=== PATIENT | female | born 1995 | race African-American/Black ===

== ENCOUNTER 2021-04-04 13:38 | Inpatient (IN) | payer OTHER ==
[2021-04-04] MEDS ORDERED: NalbUPHINE 10 MG/1 ML INJ IV PRN (14:15)
[2021-04-04] MEDS ORDERED: MINERAL OIL 30 ML ORAL LIQD PO PRN (14:15)
[2021-04-04] MEDS ORDERED: LOPERAMIDE 2 MG CAP PO PRN (14:15)
[2021-04-04] MEDS ORDERED: ONDANSETRON 4 MG/2 ML INJ IV PRN (14:15)
[2021-04-04] MEDS ORDERED: BUTORPHANOL 2 MG/1 ML INJ IV PRN (14:15)
[2021-04-04] MEDS ORDERED: miSOPROStol 200 MCG TAB PR PRN (14:15)
[2021-04-04] MEDS ORDERED: ePHEDrine SULFATE 50 MG/1 ML INJ IV PRN (14:15)
[2021-04-04] MEDS ORDERED: fentaNYL 100 MCG/2 ML INJ IV PRN (14:15)
[2021-04-04] MEDS ORDERED: LACTATED RINGERS 1,000 ML IV SCH (14:15)
[2021-04-04] MEDS ORDERED: METHYLERGONOVINE MALEATE 0.2 MG/ML VIAL IM PRN (14:15)
[2021-04-04] MEDS ORDERED: TERBUTALINE 1 MG/1 ML INJ SUB-Q PRN (14:15)
[2021-04-04] MEDS ORDERED: ACETAMINOPHEN 325 MG TAB PO PRN (14:15)
[2021-04-04] MEDS ORDERED: CARBOPROST TROMETHAMINE 250 MCG/1 ML INJ IM PRN (14:15)
[2021-04-04] MEDS ORDERED: OXYTOCIN 10 UNIT/1 ML INJ IM PRN (14:15)
--- NOTE | 2021-04-04 14:34 | History and Physical Report ---
History of Present Illness Date of examination: 04/04/21 Date of admission: 04/04/21 Chief complaint: pre-eclampsia at 35 week History of present illness: Patient course 2 para 0-1-0-1 history of section previously he desires and varicella nonimmune 1 hour GTT was abnormal 3-hour GTT was normal 24-hour urine protein is 473 mg he had approximately 10 visits during this . Blood type is A+ antibody screen negative hematocrit 40.7% rubella was immune Pap smear normal VDRL nonreactive urine culture positive hepatitis B was given hemoglobin hepatitis B was negative HIV was negative platelets were 276,000 vitamin D was 22.8 MSAFP was negative. Hematocrit was 36.2% VDRL was nonreactive 02/11/2021 group B strep not available HIV test was negative. The patient is admitted for 24-hour urine possibilities for induction of labor. All her lab values shows. Past History Past Surgical History: section Social history: denies: - Obstetrical History Expected Date of Delivery: 05/06/21 Actual Gestation: 35 Week(s) 3 Day(s) : 2 Para: 1 Hx # Term Pregnancies: 0 Number of Pregnancies: 1 Spontaneous Abortions: 0 Induced : 0 Number of Living Children: 1 Medications and Allergies Allergies Allergy/AdvReac Type Severity Reaction Status Date / Time No Known Allergies Allergy Unverified 04/04/21 14:03 Active Meds: Active Medications Acetaminophen (Acetaminophen 325 Mg Tab) 650 mg PO Q4H PRN PRN Reason: Pain, Mild (1-3) Butorphanol Tartrate (Butorphanol 2 Mg/1 Ml Inj) 1 mg IV Q2H PRN PRN Reason: Pain, Moderate(4-6) LABOR PAIN Carboprost Tromethamine (Carboprost Tromethamine 250 Mcg/1 Ml Inj) 250 mcg IM ONCE PRN PRN Reason: Uterine Bleeding Ephedrine Sulfate (Ephedrine Sulfate 50 Mg/1 Ml Inj) 10 mg IV Q2M PRN PRN Reason: Hypotension Fentanyl (Fentanyl 100 Mcg/2 Ml Inj) 100 mcg IV Q2H PRN PRN Reason: Pain,Severe (7-10) LABOR PAIN Lactated Ringer's (Lactated Ringers) 1,000 mls @ 125 mls/hr IV DIRECT ASHLEY Labetalol HCl (Labetalol 100 Mg Tab) 100 mg PO BID ASHLEY Lidocaine (Lidocaine (2%) 20 Mg/1 Ml Vial 20 Ml Mdv) 20 ml INFILTRATI ONCE ONE Stop: 04/04/21 14:16 Loperamide HCl (Loperamide 2 Mg Cap) 2 mg PO ONCE PRN PRN Reason: give with Hemabate Methylergonovine Maleate (Methylergonovine Maleate 0.2 Mg/Ml Vial) 0.2 mg IM ONCE PRN PRN Reason: Uterine Bleeding Mineral Oil (Mineral Oil 30 Ml Oral Liqd) 30 ml PO QHS PRN PRN Reason: Constipation Misoprostol (Misoprostol 200 Mcg Tab) 800 mcg [place] ONCE PRN PRN Reason: Uterine Bleeding Nalbuphine HCl (Nalbuphine 10 Mg/1 Ml Inj) 10 mg IV Q2H PRN PRN Reason: Pain, Moderate (4-6) Ondansetron HCl (Ondansetron 4 Mg/2 Ml Inj) 4 mg IV Q8H PRN PRN Reason: Nausea And Vomiting Oxytocin (Oxytocin 10 Unit/1 Ml Inj) 10 unit IM ONCE PRN PRN Reason: Uterine Bleeding Terbutaline Sulfate (Terbutaline 1 Mg/1 Ml Inj) 0.25 mg SUB-Q ONCE PRN PRN Reason: Hyperstimulation/Hypertonicity Review of Systems All systems: negative - Vital Signs Vital signs: Vital Signs Temp Pulse Resp BP Pulse Ox 98.4 F 102 H 16 137/92 97 04/04/21 14:21 04/04/21 14:21 04/04/21 14:21 04/04/21 14:21 04/04/21 14:21 Temp Pulse Resp BP Pulse Ox 98.4 F 106 H 16 137/92 98 04/04/21 14:21 04/04/21 14:26 04/04/21 14:21 04/04/21 14:04/04/21 14:26 - Physical Exam Breasts: Cardiovascular: Regular rate, Normal S1, Normal S2 Abdomen: Positive: normal appearance, soft, normal bowel sounds. Negative: distention, tenderness Vulva: both: normal Vagina: Positive: normal moisture. Negative: discharge Cervix: Negative: lesion, discharge Uterus: Positive: normal size, enlarged, normal contour Adnexa: both: normal Anus/Rectum: Positive: normal perianal skin, heme negative. Negative: rectal mass, hemorrhoids Extremities: Deep Tendon Reflex Grade: Normal +2 - Obstetrical FHR: auscultation normal, category 1 Uterine Contraction Monitor Mode: Palpation Cervical Dilatation: 1 Cervical Effacement Percentage: 50 station: -4 Uterine Contraction Pattern: Absent Results All other labs normal. Assessment and Plan 36 wks iup with pre-eclampsia.
[2021-04-04] MEDS ORDERED: LIDOCAINE (2%) 20 MG/1 ML VIAL 20 ML MDV INFILTRATI ONE (15:00)
[2021-04-04 15:17] LABS: Alanine Aminotransferase 19 units/L (7-56); Uric Acid 3.7 mg/dL (3.5-7.6)
[2021-04-04 15:25] LABS: Hemoglobin 12.3 gm/dl (10.1-14.3); Mean Corpuscular HGB Conc 35 % (30-34); Mean Corpuscular Volume 90 fl (79-97); Platelet Count 270 K/mm3 (140-440); Red Blood Count 3.88 M/mm3 (3.65-5.03)
--- NOTE | 2021-04-04 17:14 | Ultrasound Report ---
ULTRASOUND OBSTETRIC COMPLETE INDICATION / CLINICAL INFORMATION: labor. Clinical Gestational Age (GA) in weeks.days: 35.4 TECHNIQUE: Transabdominal. COMPARISON: None available. FINDINGS: NUMBER: Single PRESENTATION: cephalic PLACENTA: Fundal/left lateral and free of the os. MATERNAL ADNEXA: No significant abnormality. AMNIOTIC FLUID VOLUME: normal AMNIOTIC FLUID INDEX (LEOLA) in cm (if measured): 7.9 MEASUREMENTS: - Biparietal Diameter = 8.7 cm = 35.1 weeks.days - Head Circumference = 32 cm = 36.0 weeks.days - Abdominal Circumference = 31.3 cm = 35.2 weeks.days - Femur Length = 6.6 cm = 34.0 weeks.days - Estimated Weight (in grams, if calculated): 2559 - Heart Rate (beats per minute): 155 ADDITIONAL FINDINGS: None. PERCENTILE ESTIMATED WEIGHT (if calculated): 32 AVERAGE ULTRASOUND AGE (AUA) in weeks.days = 35.1 Detailed anatomic evaluation was not performed. IMPRESSION: 1. Single intrauterine with AUA of 35.1 weeks.days 2. No significant sonographic abnormality. Signer Name: Louis Tai MD Signed: 04/04/2021 5:09 PM Workstation Name: [id number]
[2021-04-04 17:56] LABS: Bilirubin,Urine NEG (Negative); Blood,Urine SM (Negative); Color,Urine Yellow (Yellow); Mucus,Urine 1+ /HPF; Urobilinogen,Urine < 2.0 mg/dL (<2.0)
--- NOTE | 2021-04-04 18:52 | Ultrasound Report ---
ULTRASOUND OBSTETRIC LIMITED ULTRASOUND BIOPHYSICAL PROFILE INDICATION / CLINICAL INFORMATION: ptl/ pih/. Clinical Gestational Age (GA): 35.4 weeks.days COMPARISON: None available. FINDINGS: BREATHING MOVEMENT = 2 GROSS BODY MOVEMENT = 2 TONE = 2 QUALITATIVE AMNIOTIC FLUID VOLUME = 2 TOTAL BIOPHYSICAL SCORE = 8/8 HEART RATE (beats per minute): 155 AMNIOTIC FLUID INDEX (cm) = 7.9 (normal = 7-24 cm) PRESENTATION: Cephalic. ADDITIONAL FINDINGS: None. IMPRESSION: 1. Biophysical Score = 8/8 Signer Name: Alex Vance MD Signed: 04/04/2021 6:48 PM Workstation Name: [id number]
[2021-04-05] MEDS ORDERED: OXYTOCIN DRIP 0 MILLIUNITS/0 ML BAG IV ONE (04:20)
--- NOTE | 2021-04-05 08:38 | Progress Note ---
Assessment and Plan 36 wks iup with pre-eclampsia.BP STABLE. AWAIT 24 HR URINE.BP STABLE. Subjective Date of service: 04/05/21 Principal diagnosis: 35 wks iup,PREVIOUS C/S, PRE-ECLAMPSIA Interval history: SEE H&P. Objective - Constitutional Vitals: Vital Signs - 12hr 04/04/21 04/04/21 04/04/21 20:35 20:40 20:45 Temperature Pulse Rate 104 H 110 H 97 H Respiratory Rate Blood Pressure 140/89 Blood Pressure [Left] O2 Sat by Pulse 97 99 98 Oximetry O2 Sat by Pulse Oximetry [ Bilateral Throughout] 04/04/21 04/04/21 04/04/21 20:50 20:55 21:00 Temperature Pulse Rate 96 H 100 H 95 H Respiratory Rate Blood Pressure Blood Pressure [Left] O2 Sat by Pulse 98 97 97 Oximetry O2 Sat by Pulse Oximetry [ Bilateral Throughout] 04/04/21 04/04/21 04/04/21 21:05 21:13 21:16 Temperature Pulse Rate 96 H 102 H Respiratory Rate Blood Pressure 139/88 Blood Pressure [Left] O2 Sat by Pulse 97 98 Oximetry O2 Sat by Pulse Oximetry [ Bilateral Throughout] 04/04/21 04/04/21 04/04/21 21:18 21:23 21:28 Temperature Pulse Rate 103 H 94 H 91 H Respiratory Rate Blood Pressure Blood Pressure [Left] O2 Sat by Pulse 98 97 98 Oximetry O2 Sat by Pulse Oximetry [ Bilateral Throughout] 04/04/21 04/04/21 04/04/21 21:33 21:38 21:43 Temperature Pulse Rate 95 H 95 H 91 H Respiratory Rate Blood Pressure Blood Pressure [Left] O2 Sat by Pulse 99 98 98 Oximetry O2 Sat by Pulse Oximetry [ Bilateral Throughout] 04/04/21 04/04/21 04/04/21 21:45 21:48 21:53 Temperature Pulse Rate 89 95 H 95 H Respiratory Rate Blood Pressure 132/90 Blood Pressure [Left] O2 Sat by Pulse 98 98 Oximetry O2 Sat by Pulse Oximetry [ Bilateral Throughout] 04/04/21 04/04/21 04/04/21 21:58 22:03 22:08 Temperature Pulse Rate 96 H 100 H 95 H Respiratory Rate Blood Pressure Blood Pressure [Left] O2 Sat by Pulse 98 98 98 Oximetry O2 Sat by Pulse Oximetry [ Bilateral Throughout] 04/04/21 04/04/21 04/04/21 22:13 22:15 22:18 Temperature Pulse Rate 97 H 90 91 H Respiratory Rate Blood Pressure 134/90 Blood Pressure [Left] O2 Sat by Pulse 98 97 Oximetry O2 Sat by Pulse Oximetry [ Bilateral Throughout] 04/04/21 04/04/21 04/04/21 22:29 22:34 22:39 Temperature Pulse Rate 103 H 99 H 96 H Respiratory Rate Blood Pressure Blood Pressure [Left] O2 Sat by Pulse 99 98 98 Oximetry O2 Sat by Pulse Oximetry [ Bilateral Throughout] 04/04/21 04/04/21 04/04/21 22:44 22:45 22:49 Temperature Pulse Rate 88 82 91 H Respiratory Rate Blood Pressure 134/85 Blood Pressure [Left] O2 Sat by Pulse 98 97 Oximetry O2 Sat by Pulse Oximetry [ Bilateral Throughout] 04/04/21 04/04/21 04/04/21 22:54 22:59 23:04 Temperature Pulse Rate 94 H 88 93 H Respiratory Rate Blood Pressure Blood Pressure [Left] O2 Sat by Pulse 97 97 97 Oximetry O2 Sat by Pulse Oximetry [ Bilateral Throughout] 04/04/21 04/04/21 04/04/21 23:09 23:14 23:15 Temperature Pulse Rate 88 87 85 Respiratory Rate Blood Pressure 147/82 Blood Pressure [Left] O2 Sat by Pulse 98 97 Oximetry O2 Sat by Pulse Oximetry [ Bilateral Throughout] 04/04/21 04/04/21 04/04/21 23:19 23:24 23:29 Temperature Pulse Rate 104 H 98 H 101 H Respiratory Rate Blood Pressure Blood Pressure [Left] O2 Sat by Pulse 97 97 97 Oximetry O2 Sat by Pulse Oximetry [ Bilateral Throughout] 04/04/21 04/04/21 04/04/21 23:34 23:39 23:44 Temperature Pulse Rate 95 H 97 H 94 H Respiratory Rate Blood Pressure Blood Pressure [Left] O2 Sat by Pulse 97 97 97 Oximetry O2 Sat by Pulse Oximetry [ Bilateral Throughout] 04/04/21 04/04/21 04/04/21 23:45 23:49 23:54 Temperature Pulse Rate 96 H 90 97 H Respiratory Rate Blood Pressure 128/69 Blood Pressure [Left] O2 Sat by Pulse 97 97 Oximetry O2 Sat by Pulse Oximetry [ Bilateral Throughout] 04/04/21 04/05/21 04/05/21 23:59 00:00 00:04 Temperature 98.9 F Pulse Rate 89 95 H Respiratory Rate Blood Pressure Blood Pressure [Left] O2 Sat by Pulse 97 97 Oximetry O2 Sat by Pulse Oximetry [ Bilateral Throughout] 04/05/21 04/05/21 04/05/21 00:09 00:14 00:15 Temperature Pulse Rate 99 H 94 H 98 H Respiratory Rate Blood Pressure 131/69 Blood Pressure [Left] O2 Sat by Pulse 96 97 Oximetry O2 Sat by Pulse Oximetry [ Bilateral Throughout] 04/05/21 04/05/21 04/05/21 00:19 00:24 00:35 Temperature Pulse Rate 96 H 101 H 107 H Respiratory Rate Blood Pressure Blood Pressure [Left] O2 Sat by Pulse 96 96 99 Oximetry O2 Sat by Pulse Oximetry [ Bilateral Throughout] 04/05/21 04/05/21 04/05/21 00:40 00:45 00:46 Temperature Pulse Rate 99 H 90 92 H Respiratory Rate Blood Pressure 143/85 Blood Pressure [Left] O2 Sat by Pulse 98 94 94 Oximetry O2 Sat by Pulse Oximetry [ Bilateral Throughout] 04/05/21 04/05/21 04/05/21 00:50 00:55 01:00 Temperature Pulse Rate 96 H 96 H 92 H Respiratory Rate Blood Pressure Blood Pressure [Left] O2 Sat by Pulse 97 96 97 Oximetry O2 Sat by Pulse Oximetry [ Bilateral Throughout] 04/05/21 04/05/21 04/05/21 01:05 01:10 01:15 Temperature Pulse Rate 99 H 99 H 101 H Respiratory Rate Blood Pressure 126/71 Blood Pressure [Left] O2 Sat by Pulse 97 97 97 Oximetry O2 Sat by Pulse Oximetry [ Bilateral Throughout] 04/05/21 04/05/21 04/05/21 01:20 01:25 01:30 Temperature Pulse Rate 102 H 95 H 98 H Respiratory Rate Blood Pressure Blood Pressure [Left] O2 Sat by Pulse 98 97 97 Oximetry O2 Sat by Pulse Oximetry [ Bilateral Throughout] 04/05/21 04/05/21 04/05/21 01:35 01:40 01:45 Temperature Pulse Rate 98 H 101 H 101 H Respiratory Rate Blood Pressure 128/70 Blood Pressure [Left] O2 Sat by Pulse 97 97 97 Oximetry O2 Sat by Pulse Oximetry [ Bilateral Throughout] 04/05/21 04/05/21 04/05/21 01:52 01:57 02:02 Temperature Pulse Rate 100 H 91 H 93 H Respiratory Rate Blood Pressure Blood Pressure [Left] O2 Sat by Pulse 100 97 97 Oximetry O2 Sat by Pulse Oximetry [ Bilateral Throughout] 04/05/21 04/05/21 04/05/21 02:07 02:12 02:15 Temperature Pulse Rate 93 H 103 H 90 Respiratory Rate Blood Pressure 130/71 Blood Pressure [Left] O2 Sat by Pulse 97 97 Oximetry O2 Sat by Pulse Oximetry [ Bilateral Throughout] 04/05/21 04/05/21 04/05/21 02:17 02:22 02:27 Temperature Pulse Rate 100 H 95 H 98 H Respiratory Rate Blood Pressure Blood Pressure [Left] O2 Sat by Pulse 96 97 96 Oximetry O2 Sat by Pulse Oximetry [ Bilateral Throughout] 04/05/21 04/05/21 04/05/21 02:32 02:37 02:42 Temperature Pulse Rate 89 91 H 92 H Respiratory Rate Blood Pressure Blood Pressure [Left] O2 Sat by Pulse 97 97 96 Oximetry O2 Sat by Pulse Oximetry [ Bilateral Throughout] 04/05/21 04/05/21 04/05/21 02:46 02:47 02:52 Temperature Pulse Rate 82 91 H 90 Respiratory Rate Blood Pressure 133/66 Blood Pressure [Left] O2 Sat by Pulse 93 97 96 Oximetry O2 Sat by Pulse Oximetry [ Bilateral Throughout] 04/05/21 04/05/21 04/05/21 02:57 03:02 03:07 Temperature Pulse Rate 89 90 89 Respiratory Rate Blood Pressure Blood Pressure [Left] O2 Sat by Pulse 96 96 96 Oximetry O2 Sat by Pulse Oximetry [ Bilateral Throughout] 04/05/21 04/05/21 04/05/21 03:12 03:15 03:17 Temperature Pulse Rate 91 H 96 H 86 Respiratory Rate Blood Pressure 121/75 Blood Pressure [Left] O2 Sat by Pulse 96 97 Oximetry O2 Sat by Pulse Oximetry [ Bilateral Throughout] 04/05/21 04/05/21 04/05/21 03:22 03:27 03:32 Temperature Pulse Rate 91 H 91 H 99 H Respiratory Rate Blood Pressure Blood Pressure [Left] O2 Sat by Pulse 96 97 96 Oximetry O2 Sat by Pulse Oximetry [ Bilateral Throughout] 04/05/21 04/05/21 04/05/21 03:37 03:42 03:45 Temperature Pulse Rate 95 H 98 H 95 H Respiratory Rate Blood Pressure 121/77 Blood Pressure [Left] O2 Sat by Pulse 98 96 Oximetry O2 Sat by Pulse Oximetry [ Bilateral Throughout] 04/05/21 04/05/21 04/05/21 03:52 03:57 04:02 Temperature Pulse Rate 99 H 91 H 90 Respiratory Rate Blood Pressure Blood Pressure [Left] O2 Sat by Pulse 99 98 98 Oximetry O2 Sat by Pulse Oximetry [ Bilateral Throughout] 04/05/21 04/05/21 04/05/21 04:07 04:12 04:15 Temperature Pulse Rate 97 H 96 H 88 Respiratory Rate Blood Pressure 124/70 Blood Pressure [Left] O2 Sat by Pulse 98 98 Oximetry O2 Sat by Pulse Oximetry [ Bilateral Throughout] 04/05/21 04/05/21 04/05/21 04:17 04:22 04:27 Temperature Pulse Rate 94 H 87 88 Respiratory Rate Blood Pressure Blood Pressure [Left] O2 Sat by Pulse 98 98 97 Oximetry O2 Sat by Pulse Oximetry [ Bilateral Throughout] 04/05/21 04/05/21 04/05/21 04:32 04:37 04:42 Temperature Pulse Rate 92 H 79 84 Respiratory Rate Blood Pressure Blood Pressure [Left] O2 Sat by Pulse 98 98 98 Oximetry O2 Sat by Pulse Oximetry [ Bilateral Throughout] 04/05/21 04/05/21 04/05/21 04:46 04:47 04:52 Temperature Pulse Rate 78 87 95 H Respiratory Rate Blood Pressure 130/74 Blood Pressure [Left] O2 Sat by Pulse 97 99 Oximetry O2 Sat by Pulse Oximetry [ Bilateral Throughout] 04/05/21 04/05/21 04/05/21 04:57 05:02 05:07 Temperature Pulse Rate 88 90 92 H Respiratory Rate Blood Pressure Blood Pressure [Left] O2 Sat by Pulse 99 98 95 Oximetry O2 Sat by Pulse Oximetry [ Bilateral Throughout] 04/05/21 04/05/21 04/05/21 05:12 05:15 05:17 Temperature Pulse Rate 89 83 91 H Respiratory Rate Blood Pressure 142/84 Blood Pressure [Left] O2 Sat by Pulse 96 98 Oximetry O2 Sat by Pulse Oximetry [ Bilateral Throughout] 04/05/21 04/05/21 04/05/21 05:22 05:35 05:40 Temperature Pulse Rate 105 H 89 Respiratory Rate Blood Pressure Blood Pressure [Left] O2 Sat by Pulse 98 96 98 Oximetry O2 Sat by Pulse Oximetry [ Bilateral Throughout] 04/05/21 04/05/21 04/05/21 05:45 05:50 05:55 Temperature 98.6 F Pulse Rate 99 H 97 H 103 H Respiratory Rate Blood Pressure 132/90 Blood Pressure [Left] O2 Sat by Pulse 97 97 97 Oximetry O2 Sat by Pulse Oximetry [ Bilateral Throughout] 04/05/21 04/05/21 04/05/21 06:00 06:05 06:10 Temperature Pulse Rate 102 H 97 H 105 H Respiratory Rate Blood Pressure Blood Pressure [Left] O2 Sat by Pulse 97 97 98 Oximetry O2 Sat by Pulse Oximetry [ Bilateral Throughout] 04/05/21 04/05/21 04/05/21 06:15 06:20 06:25 Temperature Pulse Rate 105 H 101 H 97 H Respiratory Rate Blood Pressure 126/72 Blood Pressure [Left] O2 Sat by Pulse 96 97 97 Oximetry O2 Sat by Pulse Oximetry [ Bilateral Throughout] 04/05/21 04/05/21 04/05/21 06:30 06:35 06:40 Temperature Pulse Rate 98 H 93 H 94 H Respiratory Rate Blood Pressure Blood Pressure [Left] O2 Sat by Pulse 97 97 97 Oximetry O2 Sat by Pulse Oximetry [ Bilateral Throughout] 04/05/21 04/05/21 04/05/21 06:45 06:50 06:55 Temperature Pulse Rate 93 H 94 H 97 H Respiratory Rate Blood Pressure 127/64 Blood Pressure [Left] O2 Sat by Pulse 97 97 96 Oximetry O2 Sat by Pulse Oximetry [ Bilateral Throughout] 04/05/21 04/05/21 04/05/21 07:00 07:02 07:03 Temperature 97.9 F Pulse Rate 99 H 106 H 99 H Respiratory 16 Rate Blood Pressure 124/81 Blood Pressure 124/81 [Left] O2 Sat by Pulse 96 96 Oximetry O2 Sat by Pulse Oximetry [ Bilateral Throughout] 04/05/21 04/05/21 04/05/21 07:04 07:05 07:10 Temperature Pulse Rate 108 H 104 H Respiratory Rate Blood Pressure Blood Pressure [Left] O2 Sat by Pulse 96 96 Oximetry O2 Sat by Pulse 100 Oximetry [ Bilateral Throughout] 04/05/21 04/05/21 04/05/21 07:15 07:20 07:25 Temperature Pulse Rate 97 H 99 H 100 H Respiratory Rate Blood Pressure Blood Pressure [Left] O2 Sat by Pulse 96 96 96 Oximetry O2 Sat by Pulse Oximetry [ Bilateral Throughout] 04/05/21 04/05/21 04/05/21 07:30 07:35 07:40 Temperature Pulse Rate 101 H 97 H 100 H Respiratory Rate Blood Pressure Blood Pressure [Left] O2 Sat by Pulse 96 96 96 Oximetry O2 Sat by Pulse Oximetry [ Bilateral Throughout] 04/05/21 04/05/21 04/05/21 07:45 07:50 07:55 Temperature Pulse Rate 98 H 101 H 106 H Respiratory Rate Blood Pressure Blood Pressure [Left] O2 Sat by Pulse 96 95 97 Oximetry O2 Sat by Pulse Oximetry [ Bilateral Throughout] 04/05/21 04/05/21 04/05/21 08:00 08:05 08:29 Temperature Pulse Rate 109 H 116 H 109 H Respiratory Rate Blood Pressure Blood Pressure [Left] O2 Sat by Pulse 95 97 98 Oximetry O2 Sat by Pulse Oximetry [ Bilateral Throughout] - Genitourinary Female genitourinary: normal - Labs CBC & Chem 7: 04/04/21 14:35 04/04/21 14:35 Labs: Abnormal lab results 04/04/21 04/04/21 Range/Units 14:35 14:35 MCHC 35 H (30-34) % Creatinine 0.4 L (0.6-1.2) mg/dL Medications & Allergies - Medications Allergies/Adverse Reactions: Allergies No Known Allergies Allergy (Unverified 04/04/21 14:03) Home Medications: Home Medications Medication Instructions Recorded Confirmed Last Taken Type Aspirin BABY CHEW TAB 100 mg PO BID MDD 2 04/04/21 04/04/21 04/04/21 08:00 History Labetalol 100mg TAB 81 mg PO DAILY MDD 1 04/04/21 04/04/21 04/03/21 20:00 History Plus Tablet 1,000 mg PO DAILY 04/04/21 04/04/21 04/04/21 08:00 History 1 Active Medications: Generic Name Dose Route Start Last Admin Trade Name Freq PRN Reason Stop Dose Admin Acetaminophen 650 mg 04/04/21 14:15 Acetaminophen 325 Mg Tab PO Q4H PRN Pain, Mild (1-3) Butorphanol Tartrate 1 mg 04/04/21 14:15 Butorphanol 2 Mg/1 Ml Inj IV Q2H PRN Pain, Moderate(4-6) LABOR PAIN Carboprost Tromethamine 250 mcg 04/04/21 14:15 Carboprost Tromethamine 250 Mcg/1 Ml Inj IM ONCE PRN Uterine Bleeding Ephedrine Sulfate 10 mg 04/04/21 14:15 Ephedrine Sulfate 50 Mg/1 Ml Inj IV Q2M PRN Hypotension Fentanyl 100 mcg 04/04/21 14:15 Fentanyl 100 Mcg/2 Ml Inj IV Q2H PRN Pain,Severe (7-10) LABOR PAIN Lactated Ringer's 1,000 mls @ 125 mls/hr 04/04/21 14:15 Lactated Ringers IV DIRECT ASHLEY Labetalol HCl 100 mg 04/04/21 22:00 04/04/21 21:16 Labetalol 100 Mg Tab PO 100 mg BID ASHLEY Administration Loperamide HCl 2 mg 04/04/21 14:15 Loperamide 2 Mg Cap PO ONCE PRN give with Hemabate Methylergonovine Maleate 0.2 mg 04/04/21 14:15 Methylergonovine Maleate 0.2 Mg/Ml Vial IM ONCE PRN Uterine Bleeding Mineral Oil 30 ml 04/04/21 14:15 Mineral Oil 30 Ml Oral Liqd PO QHS PRN Constipation Misoprostol 800 mcg 04/04/21 14:15 Misoprostol 200 Mcg Tab UT ONCE PRN Uterine Bleeding Nalbuphine HCl 10 mg 04/04/21 14:15 Nalbuphine 10 Mg/1 Ml Inj IV Q2H PRN Pain, Moderate (4-6) Ondansetron HCl 4 mg 04/04/21 14:15 Ondansetron 4 Mg/2 Ml Inj IV Q8H PRN Nausea And Vomiting Oxytocin 10 unit 04/04/21 14:15 Oxytocin 10 Unit/1 Ml Inj IM ONCE PRN Uterine Bleeding Terbutaline Sulfate 0.25 mg 04/04/21 14:15 Terbutaline 1 Mg/1 Ml Inj SUB-Q ONCE PRN Hyperstimulation/Hypertonicity
--- NOTE | 2021-04-05 13:23 | Consultation ---
History of Present Illness Consult date: 04/05/21 Requesting physician: MERY ROMAN History of present illness: APA/MFM HPI 35 y/o VALERIA 05/05/21 EGA at 36 0/7 weeks Sent from OB's office with elevated BP's H/O CHTN on Labetalol 100 BID From OB's note early 24 hour prot at 473 BP's now stable 130-140/80-90 per nurse Denies SANCHEZ's Scot[place] or RUQ pain or swelling Denies vag bleed or leaking Pos FM's ?? H/O CHTN states BP elevated early in preg Denies STD, C/D/D NKA Labetalol 100 BID Surg Prior C/S Labs AST/ALT / Plts at 270 H/H at 12/35 Creat at .4 spot UA - 30 BPP 8/8 EFW at 2559 grams - 46% EFM Categ I 140's good accels Abd soft NT gravid no RUQ Pain Ext NT no edema , DTR 2/4 , No clonus Past History Past Surgical History: section - Obstetrical History : 2 Medications and Allergies Allergies Allergy/AdvReac Type Severity Reaction Status Date / Time No Known Allergies Allergy Unverified 04/04/21 14:03 Home Medications Medication Instructions Recorded Confirmed Last Taken Type Aspirin BABY CHEW TAB 100 mg PO BID MDD 2 04/04/21 04/04/21 04/04/21 08:00 History Labetalol 100mg TAB 81 mg PO DAILY MDD 1 04/04/21 04/04/21 04/03/21 20:00 History Plus Tablet 1,000 mg PO DAILY 04/04/21 04/04/21 04/04/21 08:00 History 1 Active Meds: Active Medications Acetaminophen (Acetaminophen 325 Mg Tab) 650 mg PO Q4H PRN PRN Reason: Pain, Mild (1-3) Butorphanol Tartrate (Butorphanol 2 Mg/1 Ml Inj) 1 mg IV Q2H PRN PRN Reason: Pain, Moderate(4-6) LABOR PAIN Carboprost Tromethamine (Carboprost Tromethamine 250 Mcg/1 Ml Inj) 250 mcg IM ONCE PRN PRN Reason: Uterine Bleeding Ephedrine Sulfate (Ephedrine Sulfate 50 Mg/1 Ml Inj) 10 mg IV Q2M PRN PRN Reason: Hypotension Fentanyl (Fentanyl 100 Mcg/2 Ml Inj) 100 mcg IV Q2H PRN PRN Reason: Pain,Severe (7-10) LABOR PAIN Lactated Ringer's (Lactated Ringers) 1,000 mls @ 125 mls/hr IV DIRECT ASHLEY Labetalol HCl (Labetalol 100 Mg Tab) 100 mg PO BID ASHLEY Last Admin: 04/05/21 10:37 Dose: 100 mg Documented by: Loperamide HCl (Loperamide 2 Mg Cap) 2 mg PO ONCE PRN PRN Reason: give with Hemabate Methylergonovine Maleate (Methylergonovine Maleate 0.2 Mg/Ml Vial) 0.2 mg IM ONCE PRN PRN Reason: Uterine Bleeding Mineral Oil (Mineral Oil 30 Ml Oral Liqd) 30 ml PO QHS PRN PRN Reason: Constipation Misoprostol (Misoprostol 200 Mcg Tab) 800 mcg SD ONCE PRN PRN Reason: Uterine Bleeding Nalbuphine HCl (Nalbuphine 10 Mg/1 Ml Inj) 10 mg IV Q2H PRN PRN Reason: Pain, Moderate (4-6) Ondansetron HCl (Ondansetron 4 Mg/2 Ml Inj) 4 mg IV Q8H PRN PRN Reason: Nausea And Vomiting Oxytocin (Oxytocin 10 Unit/1 Ml Inj) 10 unit IM ONCE PRN PRN Reason: Uterine Bleeding Terbutaline Sulfate (Terbutaline 1 Mg/1 Ml Inj) 0.25 mg SUB-Q ONCE PRN PRN Reason: Hyperstimulation/Hypertonicity - Vital Signs Vital signs: Vital Signs Temp Pulse Resp BP Pulse Ox 98.4 F 102 H 16 137/92 97 04/04/21 14:21 04/04/21 14:21 04/04/21 14:21 04/04/21 14:21 04/04/21 14:21 Temp Pulse Resp BP Pulse Ox 98.0 F 99 H 18 118/75 97 04/05/21 10:39 04/05/21 13:11 04/05/21 10:39 04/05/21 11:40 04/05/21 13:11 Results Result Diagrams: 04/04/21 14:35 04/04/21 14:35 Abnormal lab results 04/04/21 04/04/21 Range/Units 14:35 14:35 MCHC 35 H (30-34) % Creatinine 0.4 L (0.6-1.2) mg/dL All other labs normal. Assessment and Plan Impression: 1. Aly IUP at 35 4/7 weeks 2. CHTN R/O Superimposed Preeclampsia 3. Prior C/S 4. Prior H/O Preeclampsia 5. Suspect UTI Recommendations 1. 24 Hour urine pending - if sig elevated would diag with [facility] 2. Steroids for FLM 3. If BP's remain stable (Mild Range) would deliver at 37 weeks for CHTN with [facility] 4. Deliver for S/S of severe preeclampsia ( Labs or symptoms ) or compromise 5. Weekly PIH labs and BPP until delivery 6. NICU consult if not done 7. Treat for suspected UTI - obtain urine C&S if not done
[2021-04-05 18:22] LABS: Creatinine 24 Hour,Urine 1.3 (0.8-2.8); Creatinine,Urine 36.6 mg/dL (0.1-20.0)
[2021-04-05] MEDS ORDERED: BETAMET ACET/BETAMET NA PH 6 MG/ML INJ 5 ML MDV IM SCH (20:00)
--- NOTE | 2021-04-06 09:20 | Progress Note ---
Subjective - Subjective Date of service: 04/06/21 Principal diagnosis: 35 wks iup,PREVIOUS C/S, PRE-ECLAMPSIA Interval history: MILD PREECLAMPSIA SCHEDULE ERCS at 37 weeks schedule BPP next saturday with blood pressure check continue antihypertensives PE, Labor precautions Rob Barraza MD Objective - Vital Signs Vital Signs: Vital Signs - 12hr 04/05/21 04/05/21 04/05/21 21:36 21:41 21:46 Temperature Pulse Rate 111 H 107 H 98 H Respiratory Rate Blood Pressure Blood Pressure [Left] O2 Sat by Pulse 98 97 97 Oximetry O2 Sat by Pulse Oximetry [ Bilateral Throughout] 04/05/21 04/05/21 04/05/21 21:51 21:56 22:18 Temperature Pulse Rate 96 H 95 H 113 H Respiratory Rate Blood Pressure 145/85 Blood Pressure [Left] O2 Sat by Pulse 97 96 97 Oximetry O2 Sat by Pulse Oximetry [ Bilateral Throughout] 04/05/21 04/05/21 04/05/21 22:19 22:23 22:30 Temperature Pulse Rate 109 H 109 H 118 H Respiratory Rate Blood Pressure 136/86 Blood Pressure [Left] O2 Sat by Pulse 96 98 Oximetry O2 Sat by Pulse Oximetry [ Bilateral Throughout] 04/05/21 04/05/21 04/05/21 22:35 22:40 22:44 Temperature Pulse Rate 114 H 110 H 56 L Respiratory Rate Blood Pressure Blood Pressure [Left] O2 Sat by Pulse 97 96 84 Oximetry O2 Sat by Pulse Oximetry [ Bilateral Throughout] 04/05/21 04/05/21 04/05/21 22:45 22:56 23:15 Temperature Pulse Rate 110 H 103 H 108 H Respiratory Rate Blood Pressure 129/68 Blood Pressure [Left] O2 Sat by Pulse 97 96 Oximetry O2 Sat by Pulse Oximetry [ Bilateral Throughout] 04/05/21 04/05/21 04/05/21 23:20 23:25 23:30 Temperature Pulse Rate 111 H 108 H 107 H Respiratory Rate Blood Pressure Blood Pressure [Left] O2 Sat by Pulse 95 95 95 Oximetry O2 Sat by Pulse Oximetry [ Bilateral Throughout] 04/05/21 04/05/21 04/05/21 23:35 23:40 23:42 Temperature Pulse Rate 107 H 118 H 118 H Respiratory Rate Blood Pressure Blood Pressure [Left] O2 Sat by Pulse 95 95 94 Oximetry O2 Sat by Pulse Oximetry [ Bilateral Throughout] 04/05/21 04/05/21 04/05/21 23:45 23:47 23:50 Temperature Pulse Rate 113 H 117 H 116 H Respiratory Rate Blood Pressure Blood Pressure [Left] O2 Sat by Pulse 95 94 95 Oximetry O2 Sat by Pulse Oximetry [ Bilateral Throughout] 04/05/21 04/05/21 04/06/21 23:55 23:56 00:20 Temperature Pulse Rate 111 H 107 H 114 H Respiratory Rate Blood Pressure 146/77 Blood Pressure [Left] O2 Sat by Pulse 96 97 Oximetry O2 Sat by Pulse Oximetry [ Bilateral Throughout] 04/06/21 04/06/21 04/06/21 00:25 00:30 00:35 Temperature Pulse Rate 109 H 109 H 108 H Respiratory Rate Blood Pressure Blood Pressure [Left] O2 Sat by Pulse 96 96 96 Oximetry O2 Sat by Pulse Oximetry [ Bilateral Throughout] 04/06/21 04/06/21 04/06/21 00:40 00:45 00:50 Temperature Pulse Rate 104 H 108 H 109 H Respiratory Rate Blood Pressure Blood Pressure [Left] O2 Sat by Pulse 96 96 95 Oximetry O2 Sat by Pulse Oximetry [ Bilateral Throughout] 04/06/21 04/06/21 04/06/21 00:55 00:56 01:00 Temperature Pulse Rate 107 H 114 H 109 H Respiratory Rate Blood Pressure 162/66 Blood Pressure [Left] O2 Sat by Pulse 96 94 95 Oximetry O2 Sat by Pulse Oximetry [ Bilateral Throughout] 04/06/21 04/06/21 04/06/21 01:05 01:10 01:14 Temperature Pulse Rate 109 H 110 H 111 H Respiratory Rate Blood Pressure Blood Pressure [Left] O2 Sat by Pulse 95 95 94 Oximetry O2 Sat by Pulse Oximetry [ Bilateral Throughout] 04/06/21 04/06/21 04/06/21 01:16 01:21 01:26 Temperature Pulse Rate 111 H 107 H 109 H Respiratory Rate Blood Pressure Blood Pressure [Left] O2 Sat by Pulse 96 96 95 Oximetry O2 Sat by Pulse Oximetry [ Bilateral Throughout] 04/06/21 04/06/21 04/06/21 01:31 01:36 01:37 Temperature Pulse Rate 102 H 111 H 119 H Respiratory Rate Blood Pressure Blood Pressure [Left] O2 Sat by Pulse 95 95 94 Oximetry O2 Sat by Pulse Oximetry [ Bilateral Throughout] 04/06/21 04/06/21 04/06/21 01:41 01:44 01:46 Temperature Pulse Rate 102 H 105 H 106 H Respiratory Rate Blood Pressure Blood Pressure [Left] O2 Sat by Pulse 95 94 94 Oximetry O2 Sat by Pulse Oximetry [ Bilateral Throughout] 04/06/21 04/06/21 04/06/21 01:50 01:51 01:55 Temperature Pulse Rate 99 H 101 H 103 H Respiratory Rate Blood Pressure Blood Pressure [Left] O2 Sat by Pulse 94 94 94 Oximetry O2 Sat by Pulse Oximetry [ Bilateral Throughout] 04/06/21 04/06/21 04/06/21 01:56 02:13 02:18 Temperature Pulse Rate 99 H 94 H 120 H Respiratory Rate Blood Pressure 135/81 Blood Pressure [Left] O2 Sat by Pulse 93 100 97 Oximetry O2 Sat by Pulse Oximetry [ Bilateral Throughout] 04/06/21 04/06/21 04/06/21 02:23 02:28 02:33 Temperature Pulse Rate 115 H 108 H 108 H Respiratory Rate Blood Pressure Blood Pressure [Left] O2 Sat by Pulse 98 96 96 Oximetry O2 Sat by Pulse Oximetry [ Bilateral Throughout] 04/06/21 04/06/21 04/06/21 02:38 02:43 02:48 Temperature Pulse Rate 105 H 115 H 110 H Respiratory Rate Blood Pressure Blood Pressure [Left] O2 Sat by Pulse 96 97 96 Oximetry O2 Sat by Pulse Oximetry [ Bilateral Throughout] 04/06/21 04/06/21 04/06/21 02:53 02:56 02:58 Temperature Pulse Rate 111 H 99 H 109 H Respiratory Rate Blood Pressure 140/85 Blood Pressure [Left] O2 Sat by Pulse 96 97 Oximetry O2 Sat by Pulse Oximetry [ Bilateral Throughout] 04/06/21 04/06/21 04/06/21 03:03 03:08 03:13 Temperature Pulse Rate 108 H 103 H 101 H Respiratory Rate Blood Pressure Blood Pressure [Left] O2 Sat by Pulse 96 97 97 Oximetry O2 Sat by Pulse Oximetry [ Bilateral Throughout] 04/06/21 04/06/21 04/06/21 03:18 03:23 03:28 Temperature Pulse Rate 103 H 102 H 113 H Respiratory Rate Blood Pressure Blood Pressure [Left] O2 Sat by Pulse 97 96 97 Oximetry O2 Sat by Pulse Oximetry [ Bilateral Throughout] 04/06/21 04/06/21 04/06/21 03:33 03:38 03:43 Temperature Pulse Rate 126 H 107 H 108 H Respiratory Rate Blood Pressure Blood Pressure [Left] O2 Sat by Pulse 96 96 97 Oximetry O2 Sat by Pulse Oximetry [ Bilateral Throughout] 04/06/21 04/06/21 04/06/21 03:48 03:56 03:57 Temperature Pulse Rate 107 H 103 H 120 H Respiratory Rate Blood Pressure 126/73 Blood Pressure [Left] O2 Sat by Pulse 96 98 Oximetry O2 Sat by Pulse Oximetry [ Bilateral Throughout] 04/06/21 04/06/21 04/06/21 04:02 04:07 04:12 Temperature Pulse Rate 109 H 114 H 106 H Respiratory Rate Blood Pressure Blood Pressure [Left] O2 Sat by Pulse 96 96 83 L Oximetry O2 Sat by Pulse Oximetry [ Bilateral Throughout] 04/06/21 04/06/21 04/06/21 04:17 04:22 04:27 Temperature Pulse Rate 110 H 113 H 109 H Respiratory Rate Blood Pressure Blood Pressure [Left] O2 Sat by Pulse 96 97 96 Oximetry O2 Sat by Pulse Oximetry [ Bilateral Throughout] 04/06/21 04/06/21 04/06/21 04:32 04:37 04:42 Temperature Pulse Rate 107 H 106 H 105 H Respiratory Rate Blood Pressure Blood Pressure [Left] O2 Sat by Pulse 95 95 95 Oximetry O2 Sat by Pulse Oximetry [ Bilateral Throughout] 04/06/21 04/06/21 04/06/21 04:46 04:47 04:52 Temperature Pulse Rate 107 H 107 H 107 H Respiratory Rate Blood Pressure Blood Pressure [Left] O2 Sat by Pulse 94 96 94 Oximetry O2 Sat by Pulse Oximetry [ Bilateral Throughout] 04/06/21 04/06/21 04/06/21 04:56 04:57 05:02 Temperature Pulse Rate 115 H 115 H 102 H Respiratory Rate Blood Pressure 135/70 Blood Pressure [Left] O2 Sat by Pulse 97 95 Oximetry O2 Sat by Pulse Oximetry [ Bilateral Throughout] 04/06/21 04/06/21 04/06/21 05:03 05:07 05:13 Temperature Pulse Rate 104 H 101 H 111 H Respiratory Rate Blood Pressure Blood Pressure [Left] O2 Sat by Pulse 94 95 96 Oximetry O2 Sat by Pulse Oximetry [ Bilateral Throughout] 04/06/21 04/06/21 04/06/21 05:18 05:23 05:28 Temperature Pulse Rate 113 H 118 H 112 H Respiratory Rate Blood Pressure Blood Pressure [Left] O2 Sat by Pulse 96 97 96 Oximetry O2 Sat by Pulse Oximetry [ Bilateral Throughout] 04/06/21 04/06/21 04/06/21 05:33 05:38 05:43 Temperature Pulse Rate 119 H 114 H 111 H Respiratory Rate Blood Pressure Blood Pressure [Left] O2 Sat by Pulse 97 96 97 Oximetry O2 Sat by Pulse Oximetry [ Bilateral Throughout] 04/06/21 04/06/21 04/06/21 05:48 05:53 05:56 Temperature Pulse Rate 115 H 117 H 116 H Respiratory Rate Blood Pressure 123/71 Blood Pressure [Left] O2 Sat by Pulse 96 96 Oximetry O2 Sat by Pulse Oximetry [ Bilateral Throughout] 04/06/21 04/06/21 04/06/21 05:58 06:04 06:09 Temperature Pulse Rate 116 H 126 H 110 H Respiratory Rate Blood Pressure Blood Pressure [Left] O2 Sat by Pulse 96 97 96 Oximetry O2 Sat by Pulse Oximetry [ Bilateral Throughout] 04/06/21 04/06/21 04/06/21 06:14 06:19 06:24 Temperature Pulse Rate 102 H 102 H 106 H Respiratory Rate Blood Pressure Blood Pressure [Left] O2 Sat by Pulse 96 97 96 Oximetry O2 Sat by Pulse Oximetry [ Bilateral Throughout] 04/06/21 04/06/21 04/06/21 06:29 06:33 06:34 Temperature Pulse Rate 107 H 104 H 102 H Respiratory Rate Blood Pressure Blood Pressure [Left] O2 Sat by Pulse 97 94 95 Oximetry O2 Sat by Pulse Oximetry [ Bilateral Throughout] 04/06/21 04/06/21 04/06/21 06:39 06:44 06:49 Temperature Pulse Rate 106 H 101 H 101 H Respiratory Rate Blood Pressure Blood Pressure [Left] O2 Sat by Pulse 96 95 95 Oximetry O2 Sat by Pulse Oximetry [ Bilateral Throughout] 04/06/21 04/06/21 04/06/21 06:51 06:54 06:56 Temperature Pulse Rate 104 H 100 H 105 H Respiratory Rate Blood Pressure 134/77 Blood Pressure [Left] O2 Sat by Pulse 94 95 94 Oximetry O2 Sat by Pulse Oximetry [ Bilateral Throughout] 04/06/21 04/06/21 04/06/21 06:59 07:04 07:09 Temperature Pulse Rate 114 H 114 H 113 H Respiratory Rate Blood Pressure Blood Pressure [Left] O2 Sat by Pulse 97 97 97 Oximetry O2 Sat by Pulse Oximetry [ Bilateral Throughout] 04/06/21 04/06/21 04/06/21 07:14 07:19 07:24 Temperature Pulse Rate 108 H 103 H 107 H Respiratory Rate Blood Pressure Blood Pressure [Left] O2 Sat by Pulse 96 96 97 Oximetry O2 Sat by Pulse Oximetry [ Bilateral Throughout] 04/06/21 04/06/21 04/06/21 07:29 07:34 07:39 Temperature Pulse Rate 106 H 107 H 109 H Respiratory Rate Blood Pressure Blood Pressure [Left] O2 Sat by Pulse 96 96 96 Oximetry O2 Sat by Pulse Oximetry [ Bilateral Throughout] 04/06/21 04/06/21 04/06/21 07:44 07:49 07:54 Temperature Pulse Rate 108 H 107 H 96 H Respiratory Rate Blood Pressure Blood Pressure [Left] O2 Sat by Pulse 96 95 96 Oximetry O2 Sat by Pulse Oximetry [ Bilateral Throughout] 04/06/21 04/06/21 04/06/21 07:56 07:59 08:13 Temperature Pulse Rate 107 H 109 H 106 H Respiratory Rate Blood Pressure 135/82 Blood Pressure [Left] O2 Sat by Pulse 97 98 Oximetry O2 Sat by Pulse Oximetry [ Bilateral Throughout] 04/06/21 04/06/21 04/06/21 08:18 08:23 08:28 Temperature Pulse Rate 115 H 105 H 108 H Respiratory Rate Blood Pressure Blood Pressure [Left] O2 Sat by Pulse 97 97 97 Oximetry O2 Sat by Pulse Oximetry [ Bilateral Throughout] 04/06/21 04/06/21 04/06/21 08:31 08:32 08:33 Temperature 98.8 F Pulse Rate 112 H 106 H Respiratory 16 Rate Blood Pressure 139/87 Blood Pressure 139/87 [Left] O2 Sat by Pulse 96 Oximetry O2 Sat by Pulse 97 Oximetry [ Bilateral Throughout] 04/06/21 04/06/21 04/06/21 08:38 08:43 08:48 Temperature Pulse Rate 122 H 100 H 100 H Respiratory Rate Blood Pressure Blood Pressure [Left] O2 Sat by Pulse 97 97 98 Oximetry O2 Sat by Pulse Oximetry [ Bilateral Throughout] 04/06/21 04/06/21 04/06/21 08:53 08:56 08:58 Temperature Pulse Rate 105 H 103 H 114 H Respiratory Rate Blood Pressure 157/98 Blood Pressure [Left] O2 Sat by Pulse 97 97 Oximetry O2 Sat by Pulse Oximetry [ Bilateral Throughout] 04/06/21 04/06/21 04/06/21 09:03 09:08 09:13 Temperature Pulse Rate 116 H 118 H 117 H Respiratory Rate Blood Pressure Blood Pressure [Left] O2 Sat by Pulse 98 97 98 Oximetry O2 Sat by Pulse Oximetry [ Bilateral Throughout] 04/06/21 09:18 Temperature Pulse Rate 117 H Respiratory Rate Blood Pressure Blood Pressure [Left] O2 Sat by Pulse 97 Oximetry O2 Sat by Pulse Oximetry [ Bilateral Throughout] - Labs Labs: Abnormal Labs 04/04/21 04/04/21 04/05/21 14:35 14:35 13:05 MCHC 35 H Creatinine 0.4 L Urine Creatinine 36.6 H Ur Total Protein 24 Hr 735.00 H Urine Total Protein 21 H Laboratory Results - last 24 hr 04/05/21 04/05/21 13:05 Unknown Urine Total Volume 3500 Urine Creatinine 36.6 H Ur Creatinine 24 Hour 1.3 Ur Total Protein 24 Hr 735.00 H Urine Total Protein 21 H Coronavirus (PCR) Negative
[2021-04-06 11:58] VITALS: BP 135/79
--- NOTE | 2021-04-06 11:59 | Discharge Summary ---
Providers - Providers Date of Admission: 04/04/21 14:27 Date of discharge: 04/06/21 Attending physician: MERY ROMAN MD Primary care physician: MERY ROMAN MD Hospitalization Reason for admission: other (preeclampsia workup) Disposition: 30 STILL A PATIENT Plan - Provider Discharge Summary Activity: no sex for 6 weeks Diet: routine Instructions: routine Additional instructions: [] Smoking cessation referral if applicable(refer to patient education folder for contact #) [] Refer to [facility] Booklet Call your doctor immediately for: * Fever > 100.5 * Heavy vaginal bleeding ( >1 pad per hour) * Severe persistent headache * Shortness of breath * Reddened, hot, painful area to leg or breast * Drainage or odor from incision. * Keep incision clean and dry at all times and follow doctor's instructions regarding bathing/showering - Follow up plan Follow up: MERY ROMAN MD [Primary Care Provider] - 7 Days
== END 2021-04-06 12:52 | disposition home or self-care (01) | DRG 833 ==
LOC: TRG 13:38 → LD 13:39 → TRG 14:15 → LD 14:27
DX: O11.3 Pre-existing hypertension with pre-eclampsia, third trimester (principal); Z3A.36 36 weeks gestation of pregnancy; O34.219 Maternal care for unspecified type scar from previous cesarean delivery; Z20.822 Contact with and (suspected) exposure to COVID-19
CPT/HCPCS: 36415; 76816; 76819; 81001; 82565; 82570; 83615; 84156; 84450; 84460; 84550; 85027; 86592; 86850; 86900; 86901; G0378; J0702; U0003

== ENCOUNTER 2021-04-10 11:19 | Outpatient (CLI) | payer OTHER ==
[2021-04-10] MEDS ORDERED: LACTATED RINGERS 1,000 ML IV ONE (11:57)
[2021-04-10 13:04] LABS: Bilirubin,Urine NEG (Negative); Blood,Urine NEG (Negative); Color,Urine Yellow (Yellow); Mucus,Urine FEW /HPF; Protein,Urine <15 mg/dL mg/dL (Negative); Urobilinogen,Urine < 2.0 mg/dL (<2.0)
[2021-04-10 13:22] LABS: Alanine Aminotransferase 15 units/L (7-56); Hematocrit 35.2 % (30.3-42.9); Hemoglobin 11.9 gm/dl (10.1-14.3); Mean Corpuscular HGB Conc 34 % (30-34); Mean Corpuscular Volume 90 fl (79-97); Platelet Count 292 K/mm3 (140-440); Red Blood Count 3.93 M/mm3 (3.65-5.03); Red Cell Distribution Width 13.7 % (13.2-15.2); Uric Acid 4.3 mg/dL (3.5-7.6)
[2021-04-10 13:23] VITALS: BP 129/80
== END 2021-04-10 13:47 | disposition home or self-care (01) ==
LOC: TRG 11:19 → APU 11:20 → TRG 13:47
PROVIDERS: ATTEND Obstetrics & Gynecology
DX: Z34.93 Encounter for supervision of normal pregnancy, unspecified, third trimester (principal); Z3A.36 36 weeks gestation of pregnancy
CPT/HCPCS: 36415; 81001; 82565; 83615; 84450; 84460; 84550; 85027

== ENCOUNTER 2021-04-14 12:00 | Outpatient (CLI) | payer OTHER ==
[2021-04-14] MEDS ORDERED: BICITRA ORAL LIQD 30ML PO SCH (13:43)
[2021-04-14 13:45] LABS: Hematocrit 37.9 % (30.3-42.9); Hemoglobin 12.9 gm/dl (10.1-14.3); Mean Corpuscular HGB Conc 34 % (30-34); Mean Corpuscular Volume 90 fl (79-97); Platelet Count 262 K/mm3 (140-440); Red Cell Distribution Width 13.6 % (13.2-15.2)
--- NOTE | 2021-04-14 13:57 | History and Physical Report ---
History of Present Illness Date of examination: 04/15/21 Date of admission: 04/15/21 11:13 Chief complaint: Preeclampsia ERCS at term Past History Past Medical History: hypertension Past Surgical History: section Social history: no significant social history - Obstetrical History Expected Date of Delivery: 05/05/21 Actual Gestation: 37 Week(s) 1 Day(s) : 2 Para: 1 Number of Pregnancies: 1 Medications and Allergies Allergies Allergy/AdvReac Type Severity Reaction Status Date / Time No Known Allergies Allergy Verified 04/14/21 12:58 Home Medications Medication Instructions Recorded Confirmed Last Taken Type Aspirin BABY CHEW TAB 100 mg PO BID MDD 2 04/04/21 04/04/21 04/04/21 08:00 History Labetalol 100mg TAB 81 mg PO DAILY MDD 1 04/04/21 04/04/21 04/03/21 20:00 History Plus Tablet 1,000 mg PO DAILY 04/04/21 04/04/21 04/04/21 08:00 History 1 labetaloL [Labetalol 200mg TAB] 200 mg PO BID #60 tablet 04/06/21 Unknown Rx Active Meds: Active Medications Citric Acid/Sodium Citrate (Bicitra Oral Liqd 30ml) 30 ml PO ONCE ASHLEY Stop: 04/15/21 13:42 Famotidine (Famotidine 20 Mg/2 Ml Inj) 20 mg IV ONCE ONE Stop: 04/14/21 14:01 Lactated Ringer's (Lactated Ringers) 1,000 mls @ 125 mls/hr IV DIRECT ASHLEY Last Admin: 04/14/21 13:47 Dose: 125 mls/hr Documented by: Lactated Ringer's (Lactated Ringers) 1,000 mls @ 2,250 mls/hr IV PREOP ASHLEY Stop: 04/15/21 14:57 Oxytocin/Sodium Chloride (Pitocin/Ns 30 Unit/500ml) 30 units in 500 mls @ 0 mls/hr IV TITR ASHLEY; Protocol Cefazolin Sodium (Ancef/Sterile Water 2 Gm/20 Ml) 2 gm in 20 mls @ 80 mls/hr IV PREOP NR; Protocol Stop: 04/15/21 13:59 Metoclopramide HCl (Metoclopramide 10 Mg/2 Ml Inj) 10 mg IV ONCE ONE Stop: 04/14/21 14:01 Review of Systems All systems: negative (no OB complaints) - Vital Signs Vital signs: Vital Signs Pulse Pulse Ox 92 H 99 04/14/21 12:56 04/14/21 12:56 Temp Pulse Resp BP Pulse Ox 98.1 F 86 14 142/90 95 04/14/21 12:57 04/14/21 13:51 04/14/21 12:57 04/14/21 13:28 04/14/21 13:51 - Physical Exam Breasts: Positive: deferred Cardiovascular: Regular rate Lungs: Positive: Clear to auscultation Abdomen: Positive: normal appearance, normal bowel sounds Genitourinary (Female): Positive: normal external genitalia Vagina: Positive: normal moisture Uterus: Positive: enlarged Extremities: Positive: normal Deep Tendon Reflex Grade: Normal +2 - Obstetrical FHR: category 1 Results Result Diagrams: 04/14/21 13:15 All other labs normal. Assessment and Plan ERCS Preeclampsia Plan: NPO,business controller to OR for procedure Rob Barraza MD
--- NOTE | 2021-04-14 13:58 | Procedure Note ---
OB Delivery Note - Delivery Date of Delivery: 04/14/21 Surgeon: LOGAN MAGANA - Section Postop diagnosis: same section procedure: repeat low transverse Disposition: PACU Complications: none Narrative: Preop diagnosis: IUP at weeks Postop diagnosis: Same Procedure: low transverse section via Pfannenstiel incision with Mofied [place] Bilateral Tubal ligation Surgeon: Dr. Logan Magana Anesthesia spinal Complications none EBL ml IV fluids mL Urine output mL, clear Drains Del Cid to gravity Findings: Viable female with weight and , normal uterus tubes and ovaries bilaterally Procedure: Patient was consented in OB triage, taken to the operating room where she received excellent spinal anesthesia. She was then placed in the dorsal supine position with a leftward tilt. The abdomen was prepped and draped in a sterile fashion, and a timeout was verified. Adequate anesthesia was confirmed prior to the skin incision. A Pfannenstiel skin incision was made with a scalpel taken down to the underlying structures and the fascia was incised in the midline. The incision was extended laterally with curved Bernstein scissors, the superior and inferior aspects of the fascial incisions were grasped with Jared clamps and the rectus muscles dissected sharply. The abdomen was entered bluntly in the midline carried down inferiorly with good visualization of the bladder. The vesicouterine peritoneum was tented with Anguillan forceps and incised in the midline with Metzenbaum scissors and the vesicouterine peritoneum taken down sharply. The uterine incision was then made sharply with a scalpel. The inferior and superior aspect of the uterine incisions were extended bluntly, the baby's head was delivered atraumatically. The remainder of the delivery was uncomplicated, no nuchal cord. The cord was clamped and cut and baby handed to waiting NICU team. An intact placenta with three-vessel cord delivered manually. The uterus was then cleared of all clots and debris and the uterus exteriorized. The uterine incision was closed in 2 layers of 0 vicryl with excellent hemostasis. Attention then turned to the fallopian tubes which were suture ligated in the usual fashion with excellent hemostasis. The abdomen was then irrigated with warm normal saline and the uterus placed back into the abdomen atraumatically. A second look at the uterine incision assured hemostasis. The peritoneum was closed with 3-0 Vicryl, the rectus muscles approximated with 3-0 Vicryl, and the fascia closed with 0 Vicryl in the usual fashion. The subcuticular structures were closed with interrupted sutures of 3-0 Vicryl and the skin closed with 4-0 Monocryl. A pressure dressing was applied. All sponge needle and instrument counts were correct x2. There were no complications. Mom and baby stable to PACU. EBL 00 mL Rob Magana MD
[2021-04-14] MEDS ORDERED: FAMOTIDINE 20 MG/2 ML INJ IV ONE (14:00)
[2021-04-14] MEDS ORDERED: METOCLOPRAMIDE 10 MG/2 ML INJ IV ONE (14:00)
[2021-04-14] MEDS ORDERED: OXYTOCIN DRIP 30 UNITS/500 ML BAG IV SCH (14:00)
[2021-04-14] MEDS ORDERED: ceFAZolin/Water 2 GM/20 ML 2 GM/20 ML SYRINGE IV NR (14:00)
[2021-04-14] MEDS ORDERED: LACTATED RINGERS 1,000 ML IV SCH ×2 (14:00→14:30)
[2021-04-14 14:30] VITALS: BP 138/84
--- NOTE | 2021-04-14 14:48 | Anesthesia Day of Surgery ---
Anesthesia Day of Surgery - Day of Surgery Patient Examined: Yes Patient H&P Reviewed: Yes Patient is NPO: Yes Beta Blockers: Yes Cardiac Clearance: No Pulmonary Clearance: No Humberto's Test: Negative
== END 2021-04-14 23:59 | disposition home or self-care (01) ==
LOC: TRG 12:00 → EDSTATUS 13:45 → UNDODISIN 16:30 → TRG 23:59
PROVIDERS: ATTEND Obstetrics & Gynecology
DX: O14.93 Unspecified pre-eclampsia, third trimester (principal); Z3A.37 37 weeks gestation of pregnancy
CPT/HCPCS: 36415; 85027; 86592; 86850; 86900; 86901; 96361; 96365; 96368; J2765; J7120; U0003; G0378

== ENCOUNTER 2021-04-15 09:52 | Inpatient (IN) | payer OTHER ==
[2021-04-15] MEDS ORDERED: LACTATED RINGERS 1,000 ML ONE (10:43)
--- NOTE | 2021-04-15 10:44 | Procedure Note ---
OB Delivery Note - Section Narrative: Preop diagnosis: IUP at 37.1 weeks, preeclampsia, previous c/sectionx1 Postop diagnosis: Same Procedure: Repeat low transverse section via Pfannenstiel incision Surgeon: Dr. Vanessa Barraza Anesthesia spinal Complications none EBL 912ml IV fluids 1000mL Urine output 200mL, clear Drains Del Cid to gravity Findings: Viable female with weight 2840gms and 8/9, normal uterus tubes and ovaries bilaterally Procedure: Patient was consented in OB triage, taken to the operating room where she received excellent spinal anesthesia. She was then placed in the dorsal supine position with a leftward tilt. The abdomen was prepped and draped in a sterile fashion, and a timeout was verified. Adequate anesthesia was confirmed prior to the skin incision. A Pfannenstiel skin incision was made with a scalpel taken down to the underlying structures and the fascia was incised in the midline. The incision was extended laterally with curved Bernstein scissors, the superior and inferior aspects of the fascial incisions were grasped with Jared clamps and the rectus muscles dissected sharply. The abdomen was entered bluntly in the midline carried down inferiorly with good visualization of the bladder. The vesicouterine peritoneum was tented with Italian forceps and incised in the midline with Metzenbaum scissors and the vesicouterine peritoneum taken down sharply. The uterine incision was then made sharply with a scalpel. The inferior and superior aspect of the uterine incisions were extended bluntly, the baby's head was delivered atraumatically. The remainder of the delivery was uncomplicated, no nuchal cord. The cord was clamped and cut and baby handed to waiting NICU team. An intact placenta with three-vessel cord delivered manually. The uterus was then cleared of all clots and debris and the uterus exteriorized. The uterine incision was closed in 2 layers of 0 vicryl with excellent hemostasis. The abdomen was then irrigated with warm normal saline and the uterus placed back into the abdomen atraumatically. A second look at the uterine incision assured hemostasis. The peritoneum was closed with 3-0 Vicryl, the rectus muscles approximated with 3-0 Vicryl, and the fascia closed with 0 Vicryl in the usual fashion. The sub cuticular structures were closed with interrupted sutures of 3-0 Vicryl and the skin closed with 4-0 Monocryl. A pressure dressing was applied. All sponge needle and instrument counts were correct x2. There were no complications. Mom and baby stable to PACU. EBL 912mL Rob Barraza MD
--- NOTE | 2021-04-15 10:44 | History and Physical Report ---
History of Present Illness Date of examination: 04/15/21 Date of admission: 04/15/21 09:52 Chief complaint: ERCS History of present illness: ERCS Preeclampsia Past History Past Surgical History: section - Obstetrical History : 2 Medications and Allergies Allergies Allergy/AdvReac Type Severity Reaction Status Date / Time No Known Allergies Allergy Verified 04/14/21 12:58 Home Medications Medication Instructions Recorded Confirmed Last Taken Type Aspirin BABY CHEW TAB 100 mg PO BID MDD 2 04/04/21 04/15/21 04/04/21 08:00 History Labetalol 100mg TAB 81 mg PO DAILY MDD 1 04/04/21 04/15/21 04/03/21 20:00 History Plus Tablet 1,000 mg PO DAILY 04/04/21 04/15/21 04/04/21 08:00 History 1 labetaloL [Labetalol 200mg TAB] 200 mg PO BID #60 tablet 04/06/21 04/15/21 Unknown Rx Ibuprofen [Motrin] 600 mg PO Q8H PRN #60 tablet 04/15/21 Unknown Rx oxyCODONE /ACETAMINOPHEN [Percocet 1 tab PO Q6HR PRN #20 tablet 04/15/21 Unknown Rx 5/325] - Vital Signs Vital signs: Vital Signs Pulse BP Pulse Ox 97 H 132/93 98 04/15/21 10:16 04/15/21 10:16 04/15/21 10:16 Temp Pulse Resp BP Pulse Ox 91 H 121/79 97 04/15/21 10:41 04/15/21 10:34 04/15/21 10:41 - Physical Exam Breasts: Positive: deferred Cardiovascular: Regular rate Lungs: Positive: Clear to auscultation Abdomen: Positive: normal appearance, soft, normal bowel sounds Vagina: Positive: normal moisture Anus/Rectum: Positive: normal perianal skin Extremities: Positive: normal Deep Tendon Reflex Grade: Hyperactive w/clonus +5 - Obstetrical FHR: category 1 Results Result Diagrams: 04/16/21 01:54 All other labs normal. Assessment and Plan Plan for ERCS informed consent Rob Barraza MD
[2021-04-15] MEDS ORDERED: BICITRA ORAL LIQD 30ML PO ONE (10:45)
[2021-04-15] MEDS ORDERED: LACTATED RINGERS 1,000 ML IV SCH (10:45)
[2021-04-15] MEDS ORDERED: METOCLOPRAMIDE 10 MG/2 ML INJ IV ONE (10:45)
[2021-04-15] MEDS ORDERED: FAMOTIDINE 20 MG/2 ML INJ IV ONE (10:45)
[2021-04-15] MEDS ORDERED: fentaNYL 100 MCG/2 ML INJ IV PRN (10:54)
[2021-04-15] MEDS ORDERED: ACETAMINOPHEN 325 MG TAB PO PRN (10:54)
[2021-04-15] MEDS ORDERED: BUTORPHANOL 2 MG/1 ML INJ IV PRN (10:54)
--- NOTE | 2021-04-15 10:59 | Anesthesia Day of Surgery ---
Anesthesia Day of Surgery - Day of Surgery Patient Examined: Yes Patient H&P Reviewed: Yes Patient is NPO: Yes Beta Blockers: No Cardiac Clearance: No Pulmonary Clearance: No Humberto's Test: Negative
[2021-04-15] MEDS ORDERED: OXYTOCIN DRIP 30 UNITS/500 ML BAG IV SCH (11:00)
--- NOTE | 2021-04-15 11:02 | Anesthesia Consultation ---
Anesthesia Consult and Med Hx Date of service: 04/15/21 - Airway Anesthetic Teeth Evaluation: Poor ROM Head & Neck: Adequate Mental/Hyoid Distance: Adequate Mallampati Class: Class II - Pulmonary Exam CTA: Yes - Cardiac Exam Cardiac Exam: RRR - Pre-Operative Health Status ASA Pre-Surgery Classification: ASA3 Proposed Anesthetic Plan: Spinal - Pulmonary Hx Smoking: No Hx Asthma: No Hx Respiratory Symptoms: No SOB: No COPD: No Home Oxygen Therapy: No Hx Pneumonia: No Hx Sleep Apnea: No - Cardiovascular System Hx Hypertension: Yes Hx Coronary Artery Disease: No Hx Heart Attack/AMI: No Hx Angina: No Hx Percutaneous Transluminal Coronary Angioplasty (PTCA): No Hx Cardia Arrhythmia: No Hx Pacemaker: No Hx Internal Defibrillator: No Hx Valvular Heart Disease: No Hx Heart Murmur: No Hx Peripheral Vascular Disease: No - Central Nervous System Hx Neuromuscular Disorder: No Hx Seizures: No CVA: No Hx Back Pain: Yes Hx Psychiatric Problems: No - Gastrointestinal Hx Ulcer: No Hx Gastroesophageal Reflux Disease: Yes - Endocrine Hx Renal Disease: No Hx End Stage Renal Disease: No Hx Cirrhosis: No Hx Liver Disease: No Hx Insulin Dependent Diabetes: No Hx Non-Insulin Dependent Diabetes: No Hx Thyroid Disease: No Hx Hypothyroidism: No Hx Hyperthyroidism: No - Hematic Hx Anemia: No Hx Sickle Cell Disease: No - Other Systems Hx Alcohol Use: No Hx Substance Use: No Hx Cancer: No Hx Obesity: No
[2021-04-15] MEDS ORDERED: ONDANSETRON 4 MG/2 ML INJ ONE ×2 (11:23)
[2021-04-15 11:29] LABS: Basophils % (Auto) 0.4 % (0.0-1.8); Eosinophils # (Auto) 0.1 K/mm3 (0.0-0.4); Hemoglobin 12.9 gm/dl (10.1-14.3); Lymphocytes # (Auto) 0.9 K/mm3 (1.2-5.4); Mean Corpuscular HGB Conc 35 % (30-34); Mean Corpuscular Volume 90 fl (79-97); Monocytes # (Auto) 0.7 K/mm3 (0.0-0.8); Monocytes % (Auto) 9.8 % (0.0-7.3); Platelet Count 246 K/mm3 (140-440); Red Blood Count 4.11 M/mm3 (3.65-5.03); Red Cell Distribution Width 13.9 % (13.2-15.2)
[2021-04-15] MEDS ORDERED: ceFAZolin/Water 2 GM/20 ML 2 GM/20 ML SYRINGE IV ONE (11:34)
[2021-04-15] MEDS ORDERED: ceFAZolin/Water 2 GM/20 ML 2 GM/20 ML SYRINGE IV SCH (12:00)
[2021-04-15] MEDS ORDERED: WATER FOR IRRIG STERILE 1,500 ML BOTTLE IR ONE (12:25)
[2021-04-15] MEDS ORDERED: SODIUM CHLORIDE 0.9% IRR 1,500 ML BOTTLE IR ONE (12:25)
[2021-04-15] MEDS ORDERED: BUPIVACAINE/PF (0.25%) 2.5 MG/ML 30 ML VIAL INFILTRATI ONE ×2 (12:43)
[2021-04-15] MEDS ORDERED: dexAMETHasone 20 MG/5 ML VIAL ONE (12:43)
[2021-04-15] MEDS ORDERED: NALOXONE 0.4 MG/1 ML INJ IV PRN (13:00)
[2021-04-15] MEDS ORDERED: IBUPROFEN 600 MG TAB PO PRN (13:00)
[2021-04-15] MEDS ORDERED: SIMETHICONE 80 MG CHEW TAB PO PRN (13:00)
[2021-04-15] MEDS ORDERED: WITCH HAZEL/ GLYCERIN PAD TP PRN (13:00)
[2021-04-15] MEDS ORDERED: MORPHINE 2 MG/1 ML INJ IV PRN (13:00)
[2021-04-15] MEDS ORDERED: SENNOSIDES 8.6 MG TAB PO PRN (13:00)
[2021-04-15] MEDS ORDERED: ONDANSETRON 4 MG/2 ML INJ IV PRN (13:00)
[2021-04-15] MEDS ORDERED: HYDROcodone/ACETAMINOPHEN 5-325 MG TAB PO PRN (13:00)
[2021-04-15] MEDS ORDERED: MAGNESIUM HYDROXIDE (MOM) ORAL LIQD UDC PO PRN (13:00)
[2021-04-15] MEDS ORDERED: KETOROLAC 30 MG/1 ML INJ IV PRN ×2 (13:00)
[2021-04-15] MEDS ORDERED: PROMETHAZINE 25 MG RECT SUPP PR PRN (13:00)
[2021-04-15] MEDS ORDERED: MORPHINE 4 MG/1 ML INJ IV PRN (13:00)
[2021-04-15] MEDS ORDERED: LANOLIN/ZINC/DIMETHICONE (LANSINOH) 7 GM TP PRN (13:00)
--- NOTE | 2021-04-15 13:22 | Progress Note ---
Spinal Anesthesia Block - Spinal Anesthesia Block Start Time: 11:59 Stop Time: 12:04 Performed by:: JACINTO VILLATORO Procedure: Patient IDed, H&P reviewed, all questions and concerns were answered, and consent was signed. Timeout was performed at bedside. Patient in sitting position. Sterile prep and drape was performed. [3] ml of 1% lidocaine skin wheal at L[3]- L [4]. Needle introducer advanced. 25 gauge spinal needle advanced. Clear, free flowing CSF. negative blood, negative paresthesia. Spinal dose given. All needles removed. Patient tolerated procedure.
--- NOTE | 2021-04-15 13:23 | Progress Note ---
Regional Anesthesia Block - Regional Anesthesia Block Start Time: 13:10 Stop Time: 13:15 Performed By:: JACINTO VILLATORO Procedure: Patient consented for TAP block for post surgical pain management. Patient identified, monitors placed, and time out performed. TAP identified bilaterally via ultrasound. Skin prepped bilaterally with [chlorhexidine] and [22g stimuplex] needle advanced to the TAP. [Marcaine 0.25% 35ml] injected under ultrasound guidance on the [left] side. [Marcaine 0.25% 35ml] injected under ultrasound guidance on the [right] side. Negative aspiration every 5mL, No change in heart rate or rhythm. Patient tolerated the procedure well. No apparent complications seen.
--- NOTE | 2021-04-15 13:26 | Post Anesthesia Evaluation ---
- Post Anesthesia Evaluation Patient Participated: Yes Airway Patent: Yes Stable Respiratory Function: Yes Nausea/Vomiting: No Temp > 96.8F: Yes Pain Manageable: Yes Adequeate Hydration: Yes Anesthesia Complications: No Block Receding Appropriately: Yes Patient on Ventilator: No
[2021-04-16] MEDS: IBUPROFEN 800 MG TAB PO PRN (00:37)
[2021-04-16 02:16] LABS: Hematocrit 32.1 % (30.3-42.9); Hemoglobin 11.6 gm/dl (10.1-14.3)
[2021-04-16] MEDS: oxyCODONE /ACETAMINOPHEN 5-325MG TAB PO PRN ×2 (09:45→16:36)
--- NOTE | 2021-04-16 14:27 | Progress Note ---
Assessment and Plan A: /postop day 1 S/P repeat LTCS. Preeclampsia. BPs well controlled. P: Continue routine /postop care. Continue to monitor BPs. Encouraged patient to ambulate. Subjective - Subjective Date of service: 04/16/21 Principal diagnosis: /postop day 1 S/P repeat LTCS Patient reports: appetite normal, voiding normally, pain well controlled, flatus, ambulating normally, no dizzy ambulation, no nauseated [place]: doing well Objective - Vital Signs Latest vital signs: Vital Signs Temp Pulse Resp BP BP Pulse Ox Pulse Ox 04/16/21 11:58 98.0 F 80 18 130/75 95 04/16/21 07:38 98.3 F 83 18 117/74 97 04/16/21 04:22 97.0 F L 75 18 130/78 91 04/16/21 01:37 18 04/16/21 00:37 20 04/16/21 00:00 98.0 F 64 18 152/93 97 04/15/21 21:55 76 18 150/87 150/87 98 04/15/21 20:00 98 04/15/21 19:56 97.0 F L 70 18 146/88 97 04/15/21 15:57 98.0 F 86 18 139/93 99 04/15/21 14:50 98.3 F 81 20 138/89 96 96 Intake and Output 04/15/21 04/16/21 04/16/21 23:59 07:59 15:59 Intake Total 560 540 240 Output Total 1800 1590 Balance -1240 -1050 240 Intake: Oral 320 120 Intake, Free Water 240 540 120 Output: Urine 1800 1590 Indwelling Catheter 1800 800 Void 790 Other: Total, Intake Amount 320 120 Total, Output Amount 1800 250 # Voids Void 1 1 1 - Exam Cardiovascular: Present: Regular rate Lungs: Present: Clear to auscultation Abdomen: Present: normal appearance, soft, normal bowel sounds. Absent: distention, tenderness, guarding, rigidity Uterus: Present: normal, firm, fundal height below umbilicus. Absent: bogginess, tenderness Extremities: Present: normal. Absent: tenderness, edema Incision: Present: dry, dressed
[2021-04-16] MEDS ORDERED: DOCUSATE SODIUM 100 MG CAP PO NR (15:00)
[2021-04-17] MEDS ORDERED: guaiFENesin 100 MG/5 ML ORAL LIQD PO PRN (00:22)
[2021-04-17] MEDS: oxyCODONE /ACETAMINOPHEN 5-325MG TAB PO PRN ×3 (02:10→21:36)
[2021-04-17] MEDS: NIFEdipine XL 30 MG TAB PO SCH (11:33)
--- NOTE | 2021-04-17 11:52 | Progress Note ---
Assessment and Plan POD # 2 A: S/P Repeat LTCS with preeclampsia Mildly elevated b/ps 140-150/80-90 P: Continue routine pp orders Continue Labetalol as ordered Procardia 30XL ordered Encourage ambulation May d/c home tomm if b/p stable Consulted DR Nelson Subjective - Subjective Date of service: 04/17/21 Principal diagnosis: /postop day 1 S/P repeat LTCS Patient reports: appetite normal, voiding normally, pain well controlled, ambulating normally [place]: doing well, bottle feeding Objective - Vital Signs Latest vital signs: Vital Signs Temp Pulse Resp BP BP BP Pulse Ox 04/17/21 10:22 130/90 04/17/21 08:07 134/94 04/17/21 08:06 98.1 F 88 16 134/90 97 04/17/21 03:10 18 04/17/21 02:10 83 20 133/85 04/17/21 00:07 98.8 F 78 20 152/89 96 04/16/21 22:18 86 18 146/92 97 04/16/21 22:17 83 146/92 04/16/21 20:20 04/16/21 18:27 04/16/21 18:23 98.2 F 18 146/81 04/16/21 16:30 98.0 F 68 18 146/87 99 04/16/21 16:21 80 174/110 95 04/16/21 14:41 04/16/21 12:00 04/16/21 11:58 98.0 F 80 18 130/75 95 Pulse Ox 04/17/21 10:22 04/17/21 08:07 04/17/21 08:06 04/17/21 03:10 04/17/21 02:10 04/17/21 00:07 04/16/21 22:18 04/16/21 22:17 04/16/21 20:20 100 04/16/21 18:27 98 04/16/21 18:23 04/16/21 16:30 04/16/21 16:21 04/16/21 14:41 98 04/16/21 12:00 98 04/16/21 11:58 Intake and Output 04/16/21 04/17/21 04/17/21 22:59 06:59 14:59 Intake Total 600 360 240 Balance 600 360 240 Intake: Oral 480 120 240 Intake, Free Water 120 240 Other: Total, Intake Amount 240 120 240 # Voids Void 1 1 1 - Exam Breasts: Present: normal Abdomen: Present: normal appearance, soft, normal bowel sounds Vulva: both: normal Uterus: Present: normal, firm, fundal height below umbilicus Extremities: Present: normal Incision: Present: normal, dry, intact
[2021-04-18] MEDS: IBUPROFEN 800 MG TAB PO PRN (04:22)
--- NOTE | 2021-04-18 09:18 | Discharge Summary ---
Providers - Providers Date of Admission: 04/15/21 09:52 Date of discharge: 04/18/21 Attending physician: LOGAN MAGANA MD Primary care physician: LOGAN MAGANA MD Hospitalization Reason for admission: section Delivery: Procedure: repeat low transverse Episiotomy: none Laceration: none Incision: normal, dry, intact Other procedures: none complications: other (htn) Discharge diagnosis: IUP at term delivered baby: female Hospital course: Pt was admitted for an emergency repeat c/s r/t preeclampsia. Her b/p was monitored pp and pt was d/c'd home in stable condition. See H&P, delivery summary, and pp notes. Condition at discharge: Stable Disposition: 01 HOME / SELF CARE / HOMELESS Plan - Discharge Medications Prescriptions: Ibuprofen [Motrin] 600 mg PO Q8H PRN #60 tablet PRN Reason: Pain oxyCODONE /ACETAMINOPHEN [Percocet 5/325] 1 tab PO Q6HR PRN #20 tablet PRN Reason: Pain - Provider Discharge Summary Activity: routine, no sex for 6 weeks, no heavy lifting 4 weeks, no strenuous exercise Diet: other (low NA) Instructions: routine Additional instructions: [] Smoking cessation referral if applicable(refer to patient education folder for contact #) [] Refer to [facility]'s [facility] Center Booklet Call your doctor immediately for: * Fever > 100.5 * Heavy vaginal bleeding ( >1 pad per hour) * Severe persistent headache * Shortness of breath * Reddened, hot, painful area to leg or breast * Drainage or odor from incision. * Keep incision clean and dry at all times and follow doctor's instructions regarding bathing/showering - Follow up plan Follow up: LOGAN MAGANA MD [Primary Care Provider] - 14 Days Forms: [facility] [place] Discharge Summary
[2021-04-18] MEDS: NIFEdipine XL 30 MG TAB PO SCH (09:50)
[2021-04-18 13:12] VITALS: BP 137/80
== END 2021-04-18 13:15 | disposition home or self-care (01) | DRG 788 ==
LOC: APU 09:52 → OB 15:39
PROVIDERS: ADMIT Obstetrics & Gynecology; ATTEND Obstetrics & Gynecology
PROC: 10D00Z1 Extraction of Products of Conception, Low, Open Approach (ICD-10-PCS; principal; 2021-04-15)
PROC: 3E0T3BZ Introduction of Anesthetic Agent into Peripheral Nerves and Plexi, Percutaneous Approach (ICD-10-PCS; 2021-04-15)
DX: O14.94 Unspecified pre-eclampsia, complicating childbirth (principal); O34.211 Maternal care for low transverse scar from previous cesarean delivery; Z3A.37 37 weeks gestation of pregnancy; Z37.0 Single live birth; O99.62 Diseases of the digestive system complicating childbirth; K21.9 Gastro-esophageal reflux disease without esophagitis; Z20.822 Contact with and (suspected) exposure to COVID-19
CPT/HCPCS: 36415; 85014; 85018; 85025; 86850; 86900; 86901; 87591; 88307; G0378; J1100; J2405; J2765; J3490; J7120; U0003